=== PATIENT | male | born 1985 | race Caucasian/White ===

== ENCOUNTER 2021-03-04 21:35 | Emergency (ER) | payer OTHER ==
[~2021-03-04] VITALS: Ht 182.9 cm; Wt 93.0 kg
--- NOTE | 2021-03-04 21:45 | NUR ---
PT BIBRA C/O PALPITATIONS S/P USING MARIJUANA VAPE AND ALBUTEROL INHALER. PT AAOX4 BREATHING EVENLY AND UNLABORED. PER PT, HE TOOK HIS INHALER AFTER USING THE MARIJUANA VAPE BEACUSE HIS "CHEST FELT TIGHT AND THEN MY HEART BEAT FASTER". PT ATTACHED TO MONITOR AND POX. PT GIVEN BLANKET AND CALL LIGHT WITHIN REACH
--- NOTE | 2021-03-04 23:20 | NUR ---
xray at bedside
[2021-03-04] MEDS ORDERED: IV NS 0.9% 1,000 ML IV ONE (23:30)
[2021-03-04 23:37] LABS: BASOPHILS # (AUTO) 0.1 K/uL (0.0-0.2); BASOPHILS % (AUTO) 0.7 % (0.0-2.0); EOSINOPHILS % (AUTO) 3.2 % (0.0-6.0); HEMATOCRIT 45 % (39-51); HEMOGLOBIN 14.7 g/dL (13.5-17.5); LYMPHOCYTES # (AUTO) 2.9 K/uL (0.8-4.8); LYMPHOCYTES % (AUTO) 24.4 % (20.0-44.0); MEAN CORPUSCULAR HGB CONC 33 g/dl (31.0-36.0); MEAN CORPUSCULAR VOLUME 86 fL (80-96); MONOCYTES # (AUTO) 1.3 K/uL (0.1-1.30); MONOCYTES % (AUTO) 11.1 % (2.0-12.0); NEUTROPHILS # (AUTO) 7.2 K/uL (1.8-8.9); NEUTROPHILS % (AUTO) 60.6 % (43.0-81.0); PLATELET COUNT (AUTO) 350 K/uL (150-450); RED BLOOD CELL COUNT(AUTO) 5.23 MIL/uL (4.5-6.0); WHITE BLOOD COUNT (AUTO) 11.8 K/uL (4.3-11.0)
[2021-03-04 23:48] LABS: CALCIUM, SERUM 8.5 mg/dL (8.5-10.1); CREATININE 1.1 mg/dL (0.6-1.3)
[2021-03-05 00:02] LABS: THYROID STIMULATING HORMONE 1.402 uIU/mL (0.358-3.74)
[2021-03-05 00:04] LABS: POTASSIUM 2.8 mmol/L (3.5-5.1)
[2021-03-05] MEDS ORDERED: POTASSIUM CHLORIDE 20 MEQ TAB.PRT.SR PO ONE ×2 (00:19→00:30)
--- NOTE | 2021-03-05 01:27 | NUR ---
Patient discharged to home in stable condition. Written and verbal after care instructions given. Patient verbalizes understanding of instruction. IV removed. Catheter intact and site benign. Pressure and 4x4 applied to site. No bleeding noted. Pt ambulatory with a steady gait
[2021-03-05 02:12] VITALS: BP 118/75
== END 2021-03-05 01:27 | disposition home or self-care (01) ==
LOC: ER 21:42
DX: R00.2 Palpitations (principal); R00.0 Tachycardia, unspecified; E87.6 Hypokalemia; I10 Essential (primary) hypertension; G43.909 Migraine, unspecified, not intractable, without status migrainosus; Z60.2 Problems related to living alone
CPT/HCPCS: 36415; 71046; 80048; 84443; 85025; 93005; 96360; 99285; J7030

== ENCOUNTER 2021-03-17 15:38 | Emergency (ER) | payer OTHER ==
[~2021-03-17] VITALS: Ht 182.9 cm; Wt 93.0 kg
--- NOTE | 2021-03-17 15:38 | NUR ---
BIBS C/O CHEST PALPITATION THAT STARTED 1500 TODAY AND FEELING NAUSEOUS. PT IS A&OX4. PT HEART RATE IS TACHY; ALL OTHER VITALS ARE WITHIN NORMAL LIMITS. BREATHING IS REGULAR AND UNLABORED. PT WAS ATTACHED TO BIOTECHNICIAN AND ATTCHED TO PULSE OX. WILL CONTINUE TO MONITOR.
--- NOTE | 2021-03-17 15:39 | NUR ---
IV WAS ESTABLISHED L AC 20G. LABS WERE COLLECTED AND SENT.
[2021-03-17] MEDS ORDERED: ONDANSETRON HCL/PF 4 MG/2 ML VIAL ONE (16:22)
--- NOTE | 2021-03-17 16:26 | NUR ---
X RAY AT BEDSIDE
[2021-03-17] MEDS ORDERED: ONDANSETRON HCL/PF - ER 4 MG/2 ML VIAL IV ONE (16:30)
[2021-03-17] MEDS ORDERED: IV NS 0.9% 1,000 ML BAG IV ONE ×2 (16:30→18:00)
[2021-03-17 16:35] LABS: BASOPHILS # (AUTO) 0.1 K/uL (0.0-0.2); BASOPHILS % (AUTO) 0.6 % (0.0-2.0); EOSINOPHILS % (AUTO) 0.7 % (0.0-6.0); HEMATOCRIT 44 % (39-51); HEMOGLOBIN 14.8 g/dL (13.5-17.5); LYMPHOCYTES # (AUTO) 2.5 K/uL (0.8-4.8); LYMPHOCYTES % (AUTO) 26.8 % (20.0-44.0); MEAN CORPUSCULAR HGB CONC 34 g/dl (31.0-36.0); MEAN CORPUSCULAR VOLUME 85 fL (80-96); MONOCYTES # (AUTO) 0.9 K/uL (0.1-1.30); MONOCYTES % (AUTO) 9.6 % (2.0-12.0); NEUTROPHILS # (AUTO) 5.9 K/uL (1.8-8.9); NEUTROPHILS % (AUTO) 62.3 % (43.0-81.0); PLATELET COUNT (AUTO) 312 K/uL (150-450); RED BLOOD CELL COUNT(AUTO) 5.16 MIL/uL (4.5-6.0); WHITE BLOOD COUNT (AUTO) 9.5 K/uL (4.3-11.0)
[2021-03-17] MEDS ORDERED: LORAZEPAM INJ 2 MG/ML VIAL ONE (16:35)
[2021-03-17 16:52] LABS: CALCIUM, SERUM 8.3 mg/dL (8.5-10.1); CARBON DIOXIDE 30 mmol/L (21-32); CHLORIDE 103 mmol/L (98-107); GLUCOSE 111 mg/dL (74-106); POTASSIUM 3.4 mmol/L (3.5-5.1); SODIUM SERUM 139 mmol/L (136-145); UREA NITROGEN, BLOOD 13 mg/dL (7-18)
[2021-03-17] MEDS ORDERED: LORAZEPAM INJ 2 MG/ML VIAL IV ONE (17:00)
--- NOTE | 2021-03-17 19:07 | NUR ---
PT IS SLEEPING COMFORTABLY IN BED. VITALS ARE WITHIN NORMAL LIMITS; HEART RATE IS 91. BREATHING IS REGULAR AND UNLABORED.
--- NOTE | 2021-03-17 19:17 | NUR ---
IV removed. Catheter intact and site benign. Pressure and 4x4 applied to site. No bleeding noted. Patient discharged to home in stable condition. Written and verbal after care instructions given. Patient verbalizes understanding of instruction.
[2021-03-17 19:18] VITALS: BP 122/82
== END 2021-03-17 19:18 | disposition home or self-care (01) ==
LOC: ER 16:12
DX: R00.2 Palpitations (principal); F12.90 Cannabis use, unspecified, uncomplicated; I10 Essential (primary) hypertension; Z88.8 Allergy status to other drugs, medicaments and biological substances; Z60.2 Problems related to living alone
CPT/HCPCS: 36415; 71045; 80048; 84484; 85025; 93005 ×3; 96361; 96374; 96375; 99285; J2060; J2405 ×2; J7030 ×2